=== PATIENT | female | born 2000 | race Caucasian/White ===

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

== ENCOUNTER 2019-01-12 10:00 | Outpatient (RCR) | payer BC, SELFPAY ==
--- NOTE | 2018-10-06 15:57 | HP.PTEVAL_ITS ---
Patient's Visit Information MERVIN KEITH is a 17 year old F referred to Physical Therapy by FRANCISCO YOU with a diagnosis of L ACL. Date of Evaluation: 10/06/18 Physical Therapist: Efraín Trinh, PT, LYNNE, SCS, CSCS - Visit Plan Frequency: 2x /Week Duration: 4 Months Plan: 2xweek for strengthing coordinate with lead trainer functional activities - Subjective Findings: Ms. Keith is a pleasant 17 yo who was refeered to our care by Dr Kaur with a diagnosis of L ACL reconstruction using collagen carrier and PRP on 07.28.18 She is approximatley 10 weeks status post and has returned to the [place]. She states that she intially injured her L acl while playing soccer in early July. She has had three surgeries on her right knee. Her goal is to return to playing soccer. - Pain Left Knee Pain Intensity (Out of 10): 1 Pain Intensity Range: 1, 4 Comment: Only when I bend back all the way - Objective Full extension 120 flexion with soft end feel. Univolved side 0 ext and 140 flexion. Negative blanche and drawer with firm end point. Girth measurement indicate approxiately 1 differnence L vs R. Hahn L 14.5, 3 above 16 6 above 19.5. R 15, 17, 19.5. MMT L leg ext 58/22.5 leg R leg ext 61.5 36.5 altered ration and difference side to side. - Goals Goal 1:: Understand the healing process and progression Goal Time Frame: 1 Week Goal 2:: Begin eccentric strengtheing and hip strengthing. Goal Time Frame: 8-12 Weeks Goal 3:: Functional RTP criteria. 1. Single leg hop for diff 10% of univolved side. 2. Same Girth. 3. No deficits with agility Goal Time Frame: 8-12 Weeks - Rehabilitation Potential Physical Therapy Diagnosis: L ACL with hip and trunck weakness Rehabilitation Potential: Excellent - Anticipated Interventions Patient/Client Instruction: Educate patient on: Condition, Plan of Care For the Purpose of:: To improve muscle performance and motor function, To improve ability to perform ADL's Therapeutic Exercise to Include: Strength training, Power training, Balance training, Agility training For the Purpose of:: To increase ROM, To improve performance and independence with ADL's, To improve gait and locomotor functions Functional Training to Include: Functional sports training For the Purpose of:: To improve endurance, To improve balance Thank you for the opportunity to evaluate your patient. For Medicare and Medicare HMO plans, please review the plan of care and approve it. It will need to be FAXED BACK to us at [phone] for Medicare purposes. For Medicare only, by signing this I certify the plan of care. Please let me know if there are questions or concerns regarding this plan of care. Physician Signature: Date:
--- NOTE | 2019-01-13 07:20 | HP.PTDCSUM ---
HP - PT D/C Summary It has been my pleasure to treat MERVIN KEITH under orders from FRANCISCO YOU, for the diagnosis of L ACL for a total of 24 visit(s). Discharge Date: 01/12/19 Please see the following information for a summary of their discharge status. - Subjective Subjective: Next week I have finals then I'll be back in [place] till school starts again at the end of February. I have an appt setup with Dr Firas and Nayana Hennessy. - Pain Left Knee Pain Intensity (Out of 10): 0 - Overall Improvement % Improvement: 90 - Objective Objective/Function: Single leg hop for distance right uninvolved 53,55,55 left invovled 44, 48,55. Was unable to control the landing at times and was tentative. 2 foot jump for height 16,19,18 slightly lower than expected. Single leg jump for height right 9,7,9 vs left 8,7,8. Single leg hop over half foam roller in 15 seconds 15 reps with right 11 left. The quality of jumping on the left is degraded. Increased stance or landing time very tentative - Goals Goal 1:: Understand the healing process and progression Goal Progress: Goal Met Goal 2:: Begin eccentric strengtheing and hip strengthing. Goal 3:: Functional RTP criteria. 1. Single leg hop for diff 10% of univolved side. 2. Same Girth. 3. No deficits with agility Goal Progress: Progressing - Plan Plan: DC to [facility]ayana at [facility] - D/C Information Discharge Comments: Thank you for letting me care for Reno she is progressing nicely. My professional recommendation would be to release her at 11 months RTP July. She is still showing significant differnce with jumping. I'd like to see her squat 205-225 by the end of summer with having a balance of 60/40 quad to hamstrings. I've already given Nayana her 5 days training routine. Any questions please contact me at your convenience. If there are questions or concerns regarding this patient's physical therapy, please feel free to call me at [phone]. Thank you for the referral of this patient. Sincerely, Efraín Trinh, PT, LYNNE, SCS, CSCS
== END 2019-01-12 19:00 | disposition home or self-care (01) ==
LOC: PT 10:00
DX: S83.512D Sprain of anterior cruciate ligament of left knee, subsequent encounter (principal)
CPT/HCPCS: 97110; 97162; 97164; 97530

== ENCOUNTER 2019-06-21 13:30 | Outpatient (RCR) | payer BC, SELFPAY ==
--- NOTE | 2019-02-28 10:19 | HP.PTEVAL ---
Patient's Visit Information MERVIN KEITH is a 18 year old F referred to Physical Therapy by FRANCISCO YOU with a diagnosis of l acl. Date of Evaluation: 02/28/19 Physical Therapist: Efraín Trinh, PT, LYNNE, SCS, CSCS - Visit Plan Frequency: 2x /Week Duration: 2 Months Plan: 2xweek for 8 weeks - Subjective Findings: Ms. Keith was referred to our care by Dr Frias and Francisco You PAC. I'm familar with Reno as we have treated her prior to follwoing up with Dr Frias in Jan for school break. Reno has returned back to school and is beginning to work out with the team. - Pain Left Knee Pain Intensity (Out of 10): 2 Pain Intensity Range: 0, 4 - Objective Reno after working with Zaynab Hensley ATC. Per patient is 1% difference for quad L>R and 15% for hamstring MMT. My Isokinectic test today is R leg ext 54.8 L 55.9 L curl R 51.7 vs 46.2. [place] has a negative draw and blanche with firm end feel. Girth measurement at knee and 6 above pateella are essentiall the same. During single leg hop test she show decreased stance time and hestiation. Signle leg explosiveness (Hop to a 24 box) was difficult for her. - Goals Goal 1:: Reinitiate a strength agility, balcne and aerobic based program. Emphasing signle leg strengthening. Wednesday - Lift heavy, Wednesday sprinting, Wed agility Lift Upper Wednesday Lift single leg lower wednesday lonf run Goal Time Frame: 1 Week Goal 2:: Improve signle leg strength withi 8% of each other Goal Time Frame: 6-8 Weeks Goal 3:: Teach progression for next 4 months - Rehabilitation Potential Rehabilitation Potential: Excellent - Anticipated Interventions Patient/Client Instruction: Educate patient on: Plan of Care For the Purpose of:: To improve muscle performance and motor function, To improve tolerance to ADL's Therapeutic Exercise to Include: Strength training, Balance training, Agility training For the Purpose of:: To increase ROM, To improve ability to perform ADL's, To improve performance and independence with ADL's, To improve gait and locomotor functions, To improve endurance Functional Training to Include: Functional sports training For the Purpose of:: To improve ability to perform ADL's, To decrease level of supervision to perform tasks Cryotherapy (ice pack, ice massage): Yes - PRN For the Purpose of:: To decrease pain, To decrease swelling/inflammation Thank you for the opportunity to evaluate your patient. For Medicare and Medicare HMO plans, please review the plan of care and approve it. It will need to be FAXED BACK to us at [phone] for Medicare purposes. For Medicare only, by signing this I certify the plan of care. Please let me know if there are questions or concerns regarding this plan of care. Physician Signature: Date:
--- NOTE | 2019-06-26 14:08 | HP.PTDCSUM ---
It has been my pleasure to treat MERVIN KEITH referred by FRANCISCO YOU, with the diagnosis of l acl for a total of 12 visit(s). Discharge Date: 06/21/19 Please see the following information for a summary of their discharge status. Subjective: School is out and I wanted to get checked out and continue my rehab. Left Knee Pain Intensity (Out of 10): 2 % Improvement: 99 Objective/Function: Neg Lalo/Drawer, girth measurements are essentiall the same. L/R 3 below 14.0 / 14.0, patella 14.5/15.0, 3 above 16.25/17.0, 6 above 19/19/5. MMT R knee ext 59.9 L 67 Knee flexion 54.7 vs. 55 within 10% difference and ration knee ext to flexion is better. Single hop distance for R 56, 58, 63 L 58, 58, 65 Goal 1:: Reinitiate a strength agility, balcne and aerobic based program. Emphasing signle leg strengthening. Wednesday - Lift heavy, Wednesday sprinting, Wed ity Lift Upper Wednesday Lift single leg lower wednesday lonf run Goal Progress: Goal Met Goal 2:: Improve single leg strength withi 8% of each other Goal Progress: Progressing Goal 3:: Teach progression for next 4 months Goal Progress: Goal Met Plan: [facility]charge to [facility]. Wednesday - Heavy olypic lifts squatting. Wednesday- Long Run. Wednesday- Upper Body core. - Agility sprints. Wednesday - Split routine. Issues a membership to [employer] to lift, I will work with her independently on for agility. 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 If there are questions or concerns regarding this patient's physical therapy, please feel free to call me at [phone]. Thank you for the referral of this patient. Sincerely, Efraín Trinh, PT, LYNNE, SCS, CSCS
== END 2019-06-21 19:00 | disposition home or self-care (01) ==
LOC: PT 13:30
DX: S83.512D Sprain of anterior cruciate ligament of left knee, subsequent encounter (principal)
CPT/HCPCS: 97014; 97035; 97110; 97161; 97530; G0283

== ENCOUNTER 2021-04-10 14:00 | Outpatient (RCR) | payer BC, SELFPAY ==
--- NOTE | 2021-02-25 15:47 | HP.PTEVAL_ITS ---
Patient's Visit Information MERVIN KEITH is a 20 year old F referred to Physical Therapy by Dr. Giovany Kaur MD with a diagnosis of Acute medial meniscus tear L knee. s/p meniscal repair 01/23/21. Date of Evaluation: 02/25/21 Physical Therapist: Marcello Burns, DPT, OCS, CSCS - Visit Plan Frequency: 2x /Week Duration: 3 Months Plan: 2x/week for 8-16 weeks for. start with gentle ROM, rollout to L quad and HS adn progress to HS and quad stretching to HEP, painfree strength of quad and HS L adn general LE strength. Once I with strenghtening, may consider progressing to sports specific controlled painfree drills in PT. May use ice, TENs if sore. Monitor need for activity modification at home if needs to manage any pain or swelling. - Subjective L ACL tear 2 yr ago and had it repaired at the time before ulises with HS. Was 100% and would have played but for covid. This is her teena year and she hurt it in October but kept playing. Was not a single collision but started hurting running one time end October and she knew something was wrong. Finished season but had some funcitonal deficits and pain. Had L meniscal repair on 01/23/21. Prior to surgery it was not painful day to day but during soccer it hurt. Did work out. Was NWB for 10 days and hen in brace locked. Since has been unlocked bending it and now since no more brace required. Weaned off crutches a little over a week ago.. Knee feels good. Some pain with bending and walking too much. Lives on [address] and is walking around campus OK. Steps descending is hard for her and feels weak. Sleep is fine. No pain meds. No more brace needed. 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 No soccer in [employer] until after spring. - Pain L knee pain medially Pain Intensity (Out of 10): 0 Pain Intensity Range: 0, 4 Comment: if on it alot - Objective Pt walks into therapy I without gait deviations, no brace and I. Trasnfers bed and chair I. steps reciprocal with no rail but weaker on L and some slight discomfort descending> ascending. AROM L knee 0-124 limited by pain, R knee 0- 142.PROM L knee to 126 with gentle pain on OP trasniently. Patella moving well B and without pain. hip strength B 4+/5 flexion, abd, ext , adduction. No quad lag on SLR and good muscle contraction L quad albeit defintiely atrophied compared to R quad. No evidence of swelling and incissions healed well with no signs of redness heat or swelling today. - german Stark - Balance/Special Test Scores Lower Extremity Functional Score: 41 - Goals Goal 1:: ST: 0-142 AROM L knee without pain Goal Time Frame: 4-6 Weeks Goal 2:: I approp knee and LE strength via home/gym ex without increased pain or swelling. Goal Time Frame: 4-6 Weeks Goal 3:: LT goals, ready to be released to full soccer drills without hesitation or technique flaws/compensation Goal Time Frame: 12-16 Weeks Goal 4:: L quad 6 inch suprapatellar within 1/4 incho of R. 90% on triple hop and single leg hop tests. Goal Time Frame: 12-16 Weeks - Rehabilitation Potential Physical Therapy Diagnosis: limited ROM and strength adn functional deficits after recent surgery. Rehabilitation Potential: Good - Anticipated Interventions Patient/Client Instruction: Educate patient on: Condition, Plan of Care For the Purpose of:: To decrease pain, To increase ROM, To improve nutrient delivery to tissue, To improve muscle performance and motor function, To increase tolerance to activity/condition/position, To improve ability of physical actions for home/community/work/leisure, To improve gait and locomotor functions Therapeutic Exercise to Include: Strength training, Endurance training, Balance training, Flexibilty training, Gait and locomotor training, Passive ROM, Active ROM For the Purpose of:: To decrease pain, To increase ROM, To improve nutrient delivery to tissue, To improve muscle performance and motor function, To increase tolerance to activity/condition/position, To improve ability of physical actions for home/community/work/leisure, To improve gait and locomotor functions Manual Therapy Techniques to Include: Mobilization, Passive ROM, Soft tissue mobilization For the Purpose of:: To decrease pain, To increase ROM TENS: Yes Cryotherapy (ice pack, ice massage): Yes For the Purpose of:: To decrease swelling/inflammation Thank you for the opportunity to evaluate your patient. For Medicare and Medicare HMO plans, please review the plan of care and approve it. It will need to be FAXED BACK to us at [phone] for Medicare purposes. For Medicare only, by signing this I certify the plan of care. Please let me know if there are questions or concerns regarding this plan of care. Physician Signature: Date:
--- NOTE | 2021-04-10 15:12 | HP.PTDCSUM_ITS ---
It has been my pleasure to treat MERVIN KEITH referred by Dr. Giovany Kaur MD, with the diagnosis of Left s/p Medial Meniscal Repair 01/23/21 for a total of 13 visit(s). Discharge Date: 04/10/21 Please see the following information for a summary of their discharge status. Subjective: I was nervous after I ran a mile and did sprints but my knee didn't hurt. My legs are tired/sore from the sprinting yesterday. L knee pain medially Pain Intensity (Out of 10): 0 % Improvement: 90 Objective/Function: Double hop 14,16,15. Left Leg hop 7,10,10. Right leg 9,10,11. Double standing 71,74,77. Single R leg for distance 57,61,60. Single L Leg 54,57,57. All within 10% of involved side Goal 1:: ST: 0-142 AROM L knee without pain Goal 2:: I approp knee and LE strength via home/gym ex without increased pain or swelling. Goal 3:: LT goals, ready to be released to full soccer drills without hesitation or technique flaws/compensation Goal Progress: Goal Met Goal 4:: L quad 6 inch suprapatellar within 1/4 incho of R. 90% on triple hop and single leg hop tests. Goal Progress: Goal Met Plan: discharge to atc at [facility] Discharge Comments: Progressing well will text health care coach and atc. If there are questions or concerns regarding this patient's physical therapy, please feel free to call me at [phone]. Thank you for the referral of this patient. Sincerely, Efraín Trinh, PT, LYNNE, SCS, CSCS Balance/Gait/Functional tests - Balance/Special Test Scores Lower Extremity Functional Score: 77
== END 2021-04-10 15:32 | disposition home or self-care (01) ==
LOC: PT 14:00
PROVIDERS: Visit Provider Orthopaedic Surgery
DX: S83.242D Other tear of medial meniscus, current injury, left knee, subsequent encounter (principal); X58.XXXD Exposure to other specified factors, subsequent encounter
CPT/HCPCS: 97014; 97110; 97161; 97164; G0283

== ENCOUNTER 2022-04-10 17:30 | Emergency (ER) | payer BC, SELFPAY ==
[2022-04-10 17:31] VITALS: BP 110/73; PULSE 71; RESP 18; TEMP 36.3; O2SAT 99; BMI 25.6
--- NOTE | 2022-04-10 18:09 | ED.RN ---
pt stated she would like to leave and not wait for ED room.
== END 2022-04-10 18:10 | disposition left against medical advice (07) ==
LOC: ED 18:11
DX: Z53.21 Procedure and treatment not carried out due to patient leaving prior to being seen by health care provider (principal)